=== PATIENT | male | born 1975 | race Caucasian/White ===

== ENCOUNTER 2022-01-21 03:39 | Emergency (ER) | payer SELFPAY ==
[2022-01-21 04:17] LABS: BASOPHILS % (AUTO) 0.3 %; EOSINOPHILS % (AUTO) 0.9 %; HCT - HEMATOCRIT 41.6 % (42.0-52.0); HGB - HEMOGLOBIN 13.9 g/dL (14.0-18.0); LYMPHOCYTES % (AUTO) 8.7 %; MEAN CORPUSCULAR HGB CONC 33.4 g/dL (32.0-36.0); MEAN CORPUSCULAR VOLUME 86.8 fL (80.0-94.0); MEAN PLATELET VOLUME 9.6 fL (7.4-11.4); MONOCYTES % (AUTO) 13.1 %; NEUTROPHILS % (AUTO) 76.6 %; PLT - PLATELET COUNT 314 10^3/uL (130-450); RED BLOOD COUNT 4.79 10^6/uL (4.70-6.10); RED CELL DISTRIBUTION WIDTH 12.7 % (12.0-15.0); WHITE BLOOD COUNT 12.8 x10^3/uL (4.8-10.8)
[2022-01-21 04:18] LABS: ABNORMAL LYMPHS % (MANUAL) 0 %; BAND NEUTROPHILS % (MANUAL) 0 %
[2022-01-21] MEDS: DEXAMETHASONE 10 MG/ML VIAL IVP STA (04:18)
[2022-01-21 04:30] LABS: ALBUMIN 3.6 g/dL (3.2-5.5); ALBUMIN/GLOBULIN RATIO 0.9 (1.0-2.2); BILIRUBIN,TOTAL 0.7 mg/dL (0.2-1.0); CALCIUM 9.1 mg/dL (8.5-10.3); CREATININE 0.9 mg/dL (0.6-1.2); POTASSIUM 3.6 mmol/L (3.5-5.0); TOTAL PROTEIN 7.4 g/dL (6.7-8.2)
[2022-01-21] MEDS: AMPICILLIN/SULBACTAM 3 GM in SODIUM CHLORIDE 0.9% MINIBAG 100 ML IV STA (04:39)
--- NOTE | 2022-01-21 04:46 | ED Physician Documentation ---
PD HPI HEENT - Stated complaint Stated Complaint: SOA - Chief complaint Chief Complaint: Heent - History obtained from History obtained from: Patient - Additional information Additional information: Patient is a 46-year-old male with no significant past medical history presenting for evaluation of left sided neck and throat swelling and pain. Patient reports his symptoms started 3 days ago with swelling underneath the left neck and has since extended. He denies fever, cough, chest pain. He reports having some trouble swallowing and needs to tilt his head back. His symptoms worsened this evening prompting him to present to the emergency department. Denies any current dental pain.Denies drug or alcohol use. Review of Systems Constitutional: denies: Fever Nose: denies: Congestion Throat: reports: Sore throat, Other (Neck swelling) Cardiac: denies: Chest pain / pressure Respiratory: denies: Dyspnea, Cough GI: denies: Abdominal Pain Skin: denies: Rash Musculoskeletal: reports: Neck pain Neurologic: denies: Headache PD PAST MEDICAL HISTORY - Past Medical History Past Medical History: No Cardiovascular: None Respiratory: None Neuro: None Endocrine/Autoimmune: None GI: None : None HEENT: None Psych: None Musculoskeletal: None Derm: None - Past Surgical History Past Surgical History: No - Present Medications Home Medications: Ambulatory Orders Medication Instructions Recorded Confirmed Amox/Clav 875/125 [Augmentin] 1 each PO Q12H 14 Days #28 tablet 01/21/22 - Allergies Allergies/Adverse Reactions: Allergies Allergy/AdvReac Type Severity Reaction Status Date / Time No Known Drug Allergies Allergy Verified 01/21/22 03:52 - Social History Does the pt smoke?: Yes Smoking Status: Current every day smoker Does the pt drink ETOH?: No Does the pt have substance abuse?: No - Immunizations Immunizations are current?: Yes - POLST Patient has POLST: No PD ED PE NORMAL - General General: Alert and oriented X 3, No acute distress - HEENT HEENT: Atraumatic, PERRL, Other (Mid mouth opening makes pharyngeal exam limited, visible swelling to left side of oropharynx with uvular edema,Left- sided neck swelling, patient has a pa, no appreciable rash, Patient is tolerating his secretions.) - Neck Neck: Supple, no meningeal sign - Cardiac Cardiac: RRR, No murmur, Strong equal pulses - Respiratory Respiratory: No respiratory distress, Clear bilaterally - Abdomen Abdomen: Soft - Derm Derm: Warm and dry - Extremities Extremities: No edema Results - Vitals Vitals: Vital Signs - 24 hr 01/21/22 01/21/22 03:49 05:39 Temperature 36.4 C L Heart Rate 94 93 Respiratory 17 15 Rate Blood Pressure 157/89 H 147/91 H O2 Saturation 100 98 Oxygen O2 Source Room air - Labs Labs: Laboratory Tests 01/21/22 01/21/22 01/21/22 04:10 04:10 04:19 WBC 12.8 H RBC 4.79 Hgb 13.9 L Hct 41.6 L MCV 86.8 MCH 29.0 MCHC 33.4 RDW 12.7 Plt Count 314 MPV 9.6 Neut # (Auto) Not Reportable Lymph # (Auto) Not Reportable [place] # (Auto) Not Reportable Eos # (Auto) Not Reportable Baso # (Auto) Not Reportable Absolute Nucleated RBC Not Reportable Total Counted 100 Band Neuts % (Manual) 0 Abnorm Lymph % (Manual) 0 Nucleated RBC % Not Reportable Neutrophils # (Manual) 9.5 H Lymphocytes # (Manual) 1.5 Monocytes # (Manual) 1.7 H Eosinophils # (Manual) 0.1 Basophils # (Manual) 0.0 Differential Comment MANUAL DIFFERENTIAL WBC Morphology NORMAL APPEARANCE Platelet Estimate NORMAL (130-450,000) Platelet Morphology NORMAL APPEARANCE RBC Morph Micro Appear NORMAL APPEARANCE Sodium 138 Potassium 3.6 Chloride 99 L Carbon Dioxide 29 Anion Gap 10.0 BUN 13 Creatinine 0.9 Estimated GFR (MDRD) 90 Glucose 166 H Calcium 9.1 Total Bilirubin 0.7 AST 18 ALT 23 Alkaline Phosphatase 53 Total Protein 7.4 Albumin 3.6 Globulin 3.8 Albumin/Globulin Ratio 0.9 L SARS-CoV-2 (PCR) Group A Strep Rapid POSITIVE H 01/21/22 04:19 WBC RBC Hgb Hct MCV MCH MCHC RDW Plt Count MPV Neut # (Auto) Lymph # (Auto) [place] # (Auto) Eos # (Auto) Baso # (Auto) Absolute Nucleated RBC Total Counted Band Neuts % (Manual) Abnorm Lymph % (Manual) Nucleated RBC % Neutrophils # (Manual) Lymphocytes # (Manual) Monocytes # (Manual) Eosinophils # (Manual) Basophils # (Manual) Differential Comment WBC Morphology Platelet Estimate Platelet Morphology RBC Morph Micro Appear Sodium Potassium Chloride Carbon Dioxide Anion Gap BUN Creatinine Estimated GFR (MDRD) Glucose Calcium Total Bilirubin AST ALT Alkaline Phosphatase Total Protein Albumin Globulin Albumin/Globulin Ratio SARS-CoV-2 (PCR) NOT DETECTED Group A Strep Rapid PD MEDICAL DECISION MAKING - ED course Complexity details: reviewed results, re-evaluated patient, d/w patient, d/w family ED course: 05 - Pt says feeling like it's slightly easier to swallow. Denies trouble breathing. Laying upright but slightly reclined in stretcher with No difficulty. Reviewed CT findings with patient and his significant other at the bedside. Discussed recommendation for transfer to a facility with ENT. The patient is hesitant but agreeable to initiating the transfer process. 06 - Discussed the case with Dr. Givens (ENT)at [facility] who graciously accepts the patient. He plans to do a laryngoscopy in the emergency department at [facility] To assess the patient's airway structures. 06 - I reviewed Dr. Givens's recommendations with the patient and with his significant other at the bedside. Patient does not want to be transferred to any facility. He would like to go home with antibiotics. I explained the risks ofLeaving AGAINST MEDICAL ADVICE. Explained my concerns that he may have signs of swelling around his airway which if worsens could lead toDecreased oxygen to his brain and body.I explained that this could lead to permanent disability or . Patient is able to state these risks back to me clearly. He is not intoxicated. He appears to haveDecision making capacity. His significant other at the bedside is also not able to convince the patient to transfer. Patient states that he feels that he is able to swallow easier and feels that things are getting better and does not want to be transferred elsewhere.Patient states that his sister is an ENT at the [facility]. When I asked if I could speak to her, he he stated he did not want to wake her up. He says that he will just call her later today.Patient is aware that he can return to the emergency department at any time if he changes his mind for another evaluation and needs to be seen immediately with any worsening symptoms. Departure - Departure Disposition: 07 Against Medical Advice Clinical Impression: Throat swelling, Strep pharyngitis Condition: Serious Instructions: ED Strep Pharyngitis Conf Prescriptions: Amox/Clav 875/125 [Augmentin] 1 each PO Q12H 14 Days #28 tablet Comments: Fernando - You were evaluated for pain and swelling to your throat. Your strep test was positive. Because of the amount of swelling a CT scan was obtained. These images show areas of swelling that are concerning because they are near your airway. My recommendation is to have you transferred to a facility where a specialist (ENT/[employer] - Ear, nose, throat doctor) Would be able to directly evaluate the swelling in relation to your airway. My concern is that swelling around your airway could worsen which could Make it difficult for you to breathe and deprive your body of oxygen. This could lead to or permanent disability. We did speak to the [facility] And they were willing to Evaluate you in their emergency department by their specialist. However, you have declined wanting to be evaluated at any other facility. Unfortunately we do not have the necessary services here at [facility] that you need. I will still prescribe antibiotic pills for you in hopes this will continue to help you fight this infection. I have sent the prescription for Augmentin to [facility] in [place]. Please start taking these as soon as possible today. If it anytime you have any worsening symptoms, please call 911 or go to the [facility] emergency department. If it anytime you change your mind and would like to be reevaluated, you are always welcome to come back to this emergency department And we will help you. Discharge Date/Time: 01/21/22 06:55
[2022-01-21 04:47] LABS: DIFFERENTIAL COMMENT MANUAL DIFFERENTIAL; EOSINOPHILS # (MANUAL) 0.1 10^3/uL (0-0.7); LYMPHOCYTES # (MANUAL) 1.5 10^3/uL (1.5-3.5); LYMPHOCYTES % (MANUAL) 12 %; MONOCYTES # (MANUAL) 1.7 10^3/uL (0.0-1.0); NEUTROPHILS # (MANUAL) 9.5 10^3/uL (1.5-6.6); PLATELET ESTIMATE, MANUAL NORMAL (130-450,000) (NORMAL); PLATELET MORPHOLOGY NORMAL APPEARANCE (NORMAL); RBC MORPHOLOGY (MULTIPLE) NORMAL APPEARANCE (NORMAL); WBC MORPHOLOGY (MULTIPLE) NORMAL APPEARANCE (NORMAL)
[2022-01-21 04:48] LABS: RAPID STREP SCREEN POSITIVE (Negative)
[2022-01-21 05:39] VITALS: BP 147/91
--- NOTE | 2022-01-21 08:05 | CT Report ---
PROCEDURE: SOFT TISSUE NECK WO INDICATIONS: L sided neck pain TECHNIQUE: Non-contrast 3.0 mm axial sections acquired from the sella to the aortic arch. Additiona l oblique axial 3.0 mm sections acquired through the pharynx. 3 mm thick coronal reformats were gene rated. For radiation dose reduction, the following was used: automated exposure control, adjustment of mA and/or kV according to patient size. COMPARISON: None. FINDINGS: Image quality: Excellent. Diagnostic sensitivity of the study is diminished secondary to lack of int ravenous contrast. Lymph nodes: Enlarged left level 2 and level 3 neck lymph nodes. Vessels: Non-opacified vessels appear normal in caliber. Neck spaces: Soft tissue prominence noted in the left oropharynx and hypopharynx. The left palatine t onsil is prominent. No definite abscess identified. Soft tissue stranding noted in the left neck soft tissues. The vocal cords, false vocal cords, pyriform sinuses, epiglottis, vallecula, and tongue bas e all appear normal. Extramucosal spaces appear unremarkable. Glands: The parotid and submandibular glands appear normal, without stones. The thyroid is normal i n size and there are no incidental findings. Miscellaneous: Visualized brain and orbits appear normal. Lung apices appear clear. Superficial so ft tissues appear normal. IMPRESSION: 1. Left oropharyngeal and hypopharyngeal soft tissue prominence with left neck soft tissue swelling. Findings could be secondary to neoplastic or infectious etiologies. Recommend CT scan of the soft tis keven neck with benefit of intravenous contrast for additional evaluation. 2. No definite abscess identified, however abscess cannot be completely excluded without benefit of i ntravenous contrast. 3. Left level 2 and level 3 neck lymphadenopathy which could be reactive or neoplastic. Reviewed by: Adriana Mustafa MD, PhD on 01/21/2022 8:04 AM PDT Approved by: Adriana Mustafa MD, PhD on 01/21/2022 8:04 AM PDT Station ID: [id number]
== END 2022-01-21 06:55 | disposition left against medical advice (07) ==
LOC: ED 03:39
DX: J02.0 Streptococcal pharyngitis (principal); R59.0 Localized enlarged lymph nodes; F17.200 Nicotine dependence, unspecified, uncomplicated; Z20.822 Contact with and (suspected) exposure to COVID-19
CPT/HCPCS: 36415; 80053; 85025; 87040; 87430; 96365; 96375; 99284